=== PATIENT | male | born 1955 | race Caucasian/White ===

== ENCOUNTER 2022-01-13 19:21 | Inpatient (IN) | payer MEDICARE ==
[~2022-01-13] VITALS: Ht 170.2 cm; Wt 79.0 kg
[2022-01-13] MEDS ORDERED: ONDANSETRON HCL 4MG/2ML INJ IV STA ×2 (19:39→23:50)
[2022-01-13] MEDS ORDERED: MORPHINE SULFATE 4 MG/ML CPJ (NOT FOR IM USE) IV STA ×2 (19:39→23:50)
[2022-01-13] MEDS ORDERED: ONDANSETRON HCL 4MG/2ML INJ IV NR (19:39)
[2022-01-13] MEDS ORDERED: MORPHINE SULFATE 4 MG/ML CPJ (NOT FOR IM USE) IV NR (19:39)
[2022-01-13] MEDS ORDERED: SODIUM CHLORIDE 0.9% 1,000 ML IV ONE (19:45)
[2022-01-13] MEDS ORDERED: DIPHENHYDRAMINE 50MG/ML VIAL IV NR (19:45)
[2022-01-13] MEDS ORDERED: DIPHENHYDRAMINE 50MG/ML VIAL IV ONE (19:45)
[2022-01-13 22:43] LABS: HEMOGLOBIN. 15.2 g/dL (14.0-18.0); MEAN CORPUSCULAR HEMOGLOBIN 31.3 pg (28.0-32.0); MEAN CORPUSCULAR VOLUME 92.6 fL (80.0-94.0); MEAN PLATELET VOLUME 9.3 fl (7.4-10.4); PLATELET 329 x1000/uL (130-400); RED BLOOD CELL COUNT 4.86 mill/uL (4.7-6.1); RED CELL DISTRIBUTION WIDTH 14.3 % (11.6-14.6)
[2022-01-13 22:50] LABS: CLARITY URINE CLEAR (CLEAR); COLOR URINE YELLOW (YELLOW); KETONES URINE TRACE (NEGATIVE); LEUKOCYTE ESTERASE URINE NEGATIVE (NEGATIVE); NITRITE URINE NEGATIVE (NEGATIVE); OCCULT BLOOD URINE NEGATIVE (NEGATIVE); PH URINE 8.5 (4.5-8.0); PROTEIN URINE NEGATIVE (NEGATIVE); SPECIFIC GRAVITY URINE 1.023 (1.005-1.030); UROBILINOGEN URINE 0.2 E.U./dL (0.2-1.0)
[2022-01-13 22:55] LABS: CHLORIDE 108 mEq/L (98-107)
[2022-01-13 23:17] LABS: PLATELET ESTIMATE NORMAL
[2022-01-14] MEDS ORDERED: CLONIDINE 0.2MG TABLET PO ONE
[2022-01-14] MEDS ORDERED: DIPHENHYDRAMINE 50MG/ML VIAL IV ONE
[2022-01-14] MEDS ORDERED: METRONIDAZOLE 500 MG PREMIX 100 ML IV ONE
[2022-01-14] MEDS ORDERED: LEVOFLOXACIN 750MG PREMIX 150 ML IV ONE
[2022-01-14] MEDS ORDERED: ASPIRIN 325MG EC TABLET PO ONE (00:15)
[2022-01-14] MEDS ORDERED: HYDRALAZINE 20MG/ML VIAL IV ONE (01:00)
[2022-01-14] MEDS ORDERED: HYDROMORPHONE HCL/PF 2MG/ML CPJ IV PRN (02:15)
[2022-01-14] MEDS ORDERED: SODIUM CHLORIDE 0.9% 1,000 ML IV SCH ×2 (02:15→11:00)
[2022-01-14] MEDS ORDERED: ONDANSETRON HCL 4MG/2ML INJ IV PRN (02:15)
[2022-01-14] MEDS: INSULIN LISPRO 100 UNITS/ML SUBCUT SCH ×3 (02:15→11:47)
[2022-01-14] MEDS ORDERED: DIPHENHYDRAMINE 50MG/ML VIAL IV PRN (02:15)
[2022-01-14] MEDS ORDERED: ACETAMINOPHEN 650MG SUPP PR PRN ×2 (02:15)
[2022-01-14] MEDS ORDERED: DEXTROSE 50% WATER 50ML SYRINGE IV PRN (02:15)
[2022-01-14] MEDS ORDERED: HYDRALAZINE 20MG/ML VIAL IV PRN (02:15)
[2022-01-14] MEDS: BLOOD SUGAR DIAGNOSTIC STRIP TEST SCH ×3 (02:37→11:46)
[2022-01-14] MEDS ORDERED: NALOXONE HCL 0.4 MG/ML 1ML VIAL IV PRN (02:45)
[2022-01-14] MEDS ORDERED: PANTOPRAZOLE SODIUM 40 MG/VIAL IV SCH (09:00)
[2022-01-14 10:25] VITALS: BP 126/78
[2022-01-14 10:28] VITALS: BP 126/78
[2022-01-14] MEDS ORDERED: EFEX1 PO (10:48)
[2022-01-14] MEDS ORDERED: LISI-186 PO (10:53)
[2022-01-14] MEDS ORDERED: PREG150C PO (10:53)
[2022-01-14] MEDS ORDERED: OMEP20TA15 MT (10:53)
[2022-01-14 11:49] VITALS: BP 111/52
[2022-01-14 15:58] VITALS: BP 117/61
[2022-01-14 16:56] LABS: CHLORIDE 115 mEq/L (98-107)
== END 2022-01-14 16:50 | disposition left against medical advice (07) | DRG 438 ==
LOC: EDSEX 19:21 → ER 19:21 → MICUSO 01-14 00:58 → 5EST 01-14 10:05
PROVIDERS: ADMIT Internal Medicine; ATTEND Internal Medicine
DX: K85.90 Acute pancreatitis without necrosis or infection, unspecified (principal); I21.4 Non-ST elevation (NSTEMI) myocardial infarction; K56.7 Ileus, unspecified; I10 Essential (primary) hypertension; E78.00 Pure hypercholesterolemia, unspecified; K52.9 Noninfective gastroenteritis and colitis, unspecified; E78.5 Hyperlipidemia, unspecified; K21.9 Gastro-esophageal reflux disease without esophagitis; F17.210 Nicotine dependence, cigarettes, uncomplicated; Z88.5 Allergy status to narcotic agent; Z90.49 Acquired absence of other specified parts of digestive tract; Z53.29 Procedure and treatment not carried out because of patient's decision for other reasons; E11.65 Type 2 diabetes mellitus with hyperglycemia; K40.20 Bilateral inguinal hernia, without obstruction or gangrene, not specified as recurrent; K57.30 Diverticulosis of large intestine without perforation or abscess without bleeding; N30.90 Cystitis, unspecified without hematuria
CPT/HCPCS: 36415; 71045; 74176; 80053; 81003; 82962; 83036; 84484; 85025; 93005; 93306; 99291; C9113; J0360; J1200; J1815; J1956; J2270; J2405; J3490; J7030